=== PATIENT | female | born 1975 | race Caucasian/White ===

== ENCOUNTER → 2016-07-12 | Outpatient (CLI) | payer BC ==
[2016-07-12 15:50] LABS: Aty Lym Flag Moderate; CH 28.5; CHCM 33.2; HDW 2.37; HGB 12.7 gm/dL (11.4-16.0); MCHC 32.5 g/dL (31.0-37.0); MCV 86.2 fL (80.0-100.0); Mean Platelet Volume 6.7; RBC 4.52 m/uL (3.80-5.40); RDW 13.8 % (11.5-15.5)
[2016-07-12 15:54] LABS: ALT 23 U/L (9-52); AST 16 U/L (14-36); Alkaline Phosphatase 69 U/L (38-126); Anion Gap 11 mmol/L; Blood Urea Nitrogen 10 mg/dL (7-17); Calcium 9.7 mg/dL (8.4-10.2); Carbon Dioxide 26 mmol/L (22-30); Chloride 103 mmol/L (98-107); Glucose 85 mg/dL (74-99); LDH 302 U/L (313-618); Non-African American GFR(MDRD) >60 (>60 ml/min/1.73 sqM); Potassium 4.3 mmol/L (3.5-5.1); Sodium 140 mmol/L (137-145); Total Bilirubin 0.5 mg/dL (0.2-1.3); Total Protein 7.1 g/dL (6.3-8.2)
[2016-07-12 15:58] LABS: WBC 48.1 k/uL (3.8-10.6)
[2016-07-12 16:28] LABS: Add Differential Manual Differential
[2016-07-12 16:29] LABS: Nucleated Red Blood Cells 0 /100 WBC (0-0); Polychromasia Present; Total Cells Counted 100
== END ==
LOC: LABWHC1 15:18
PROVIDERS: ATTEND Internal Medicine
DX: C91.10 Chronic lymphocytic leukemia of B-cell type not having achieved remission (principal)
CPT/HCPCS: 36415; 80053; 83615; 85025

== ENCOUNTER → 2017-03-08 | Outpatient (CLI) | payer BC ==
[2017-03-08 11:49] LABS: Appearance,Urine Clear (Clear); Bilirubin,Urine Negative (Negative); Glucose,Urine (UA) Negative (Negative); Ketones,Urine Negative (Negative); Leukocyte Esterase,Urine Negative (Negative); Nitrite,Urine Negative (Negative); Protein,Urine Negative (Negative); Specific Gravity,Urine 1.011 (1.001-1.035); UA Billing (MACRO vs. MICRO) CHEM; Urobilinogen,Urine <2.0 mg/dL (<2.0)
[2017-03-08 11:54] LABS: Aty Lym Flag Moderate; CH 27.3; CHCM 31.9; HCT 36.1 % (34.0-46.0); HDW 2.37; HGB 12.1 gm/dL (11.4-16.0); MCH 28.7 pg (25.0-35.0); MCHC 33.4 g/dL (31.0-37.0); Mean Platelet Volume 7.1; RDW 15.2 % (11.5-15.5)
[2017-03-08 12:00] LABS: WBC 77.5 k/uL (3.8-10.6)
[2017-03-08 12:16] LABS: Add Differential Manual Differential
[2017-03-08 12:20] LABS: Nucleated Red Blood Cells 0 /100 WBC (0-0); Total Cells Counted 200
[2017-03-08 13:57] LABS: Erythrocyte Sedimentation Rate 7 mm/hr (0-20)
[2017-03-08 16:00] LABS: Gliadin AB IgA, Deaminated NEGATIVE (NEGATIVE); Tis Transglutaminase IgA Unit <0.5 AI
[2017-03-08 16:01] LABS: Tis Transglutaminase IgG Unit <0.8 U/mL
[2017-03-08 16:02] LABS: Gliadin AB IgG, Deaminated NEGATIVE (NEGATIVE); Gliadin AB IgG, Unit <0.4 U/mL
[2017-03-20 14:28] LABS: Mis test requested (Blood) Anti-IgE Receptor Ab
== END ==
LOC: LABWHC1 10:32
PROVIDERS: ATTEND Allergy & Immunology
DX: L50.9 Urticaria, unspecified (principal); K21.9 Gastro-esophageal reflux disease without esophagitis
CPT/HCPCS: 36415; 81003; 82784; 83516; 84436; 84439; 84443; 85025; 85652; 86160; 86162; 86376; 86800; 88184; 88185

== ENCOUNTER → 2017-05-15 | Outpatient (CLI) | payer BC ==
[2017-05-15 08:40] LABS: Anisocytosis Slight; HCT 33.5 % (34.0-46.0); HGB 10.9 gm/dL (11.4-16.0); MCH 29.2 pg (25.0-35.0); MCHC 32.7 g/dL (31.0-37.0); MCV 89.5 fL (80.0-100.0); Mean Platelet Volume 6.5; Platelet Count 364 k/uL (150-450); RBC 3.75 m/uL (3.80-5.40); RDW 17.4 % (11.5-15.5)
[2017-05-15 08:57] LABS: ALT 29 U/L (9-52); AST 16 U/L (14-36); Albumin 4.1 g/dL (3.5-5.0); Alkaline Phosphatase 65 U/L (38-126); Anion Gap 11 mmol/L; Blood Urea Nitrogen 9 mg/dL (7-17); Calcium 9.5 mg/dL (8.4-10.2); Carbon Dioxide 26 mmol/L (22-30); Chloride 106 mmol/L (98-107); Cholesterol 203 mg/dL (<200); Glucose 98 mg/dL (74-99); HDL Cholesterol 42 mg/dL (40-60); LDL Cholesterol,Calculated 135 mg/dL (0-99); Potassium 4.7 mmol/L (3.5-5.1); Sodium 143 mmol/L (137-145); Total Bilirubin 0.3 mg/dL (0.2-1.3); Total Protein 6.4 g/dL (6.3-8.2); Triglycerides 131 mg/dL (<150)
[2017-05-15 10:29] LABS: Lymphocytes # (M) 107.48 k/uL (1.0-4.8); Monocytes # (M) 1.11 k/uL (0-1.0); Neutrophils # (M) 3.32 k/uL (1.3-7.7); Neutrophils % (M) 3 %; Nucleated Red Blood Cells 0 /100 WBC (0-0); Total Cells Counted 200
[2017-05-15 10:30] LABS: Poikilocytosis (M) Present
[2017-05-15 11:41] LABS: WBC 110.8 k/uL (3.8-10.6)
== END | disposition home or self-care (01) ==
LOC: LABWHC1 07:57
PROVIDERS: ATTEND Family Medicine
DX: Z00.00 Encounter for general adult medical examination without abnormal findings (principal); E03.9 Hypothyroidism, unspecified; F32.9 Major depressive disorder, single episode, unspecified; C91.90 Lymphoid leukemia, unspecified not having achieved remission
CPT/HCPCS: 36415; 80053; 80061; 84443; 85025

== ENCOUNTER → 2017-05-29 | Outpatient (CLI) | payer BC ==
[2017-05-29 09:15] LABS: Anisocytosis Slight; HCT 33.5 % (34.0-46.0); HGB 10.8 gm/dL (11.4-16.0); MCH 29.2 pg (25.0-35.0); MCHC 32.3 g/dL (31.0-37.0); MCV 90.5 fL (80.0-100.0); Mean Platelet Volume 6.5; Platelet Count 328 k/uL (150-450)
[2017-05-29 09:29] LABS: WBC 109.4 k/uL (3.8-10.6)
[2017-05-29 10:37] LABS: Lymphocytes # (M) 103.93 k/uL (1.0-4.8); Monocytes # (M) 1.09 k/uL (0-1.0); Neutrophils # (M) 5.47 k/uL (1.3-7.7); Neutrophils % (M) 5 %; Nucleated Red Blood Cells 0 /100 WBC (0-0); Total Cells Counted 200
[2017-05-29 10:38] LABS: Poikilocytosis (M) Present
== END | disposition home or self-care (01) ==
LOC: LABWHC1 08:20
PROVIDERS: ATTEND Internal Medicine
DX: C91.10 Chronic lymphocytic leukemia of B-cell type not having achieved remission (principal)
CPT/HCPCS: 36415; 85025

== ENCOUNTER → 2018-05-10 | Outpatient (CLI) | payer BC ==
--- NOTE | 2018-05-13 13:27 | MM ---
Reason for exam: screening (asymptomatic). Last mammogram was performed 1 year and 3 months ago. History: Patient has history of other cancer at age 38. taking oral chemo now. Took hormonal contraceptives for 15 years. MG 3D Screening Mammo W/Cad Bilateral CC and MLO view(s) were taken. Prior study comparison: January 23, 2017, left breast MG 3d diag mammo w/cad LT. March 16, 2016, left breast MG work up mamm w CAD LT. The breast tissue is heterogeneously dense. This may lower the sensitivity of mammography. No suspicious abnormality. No significant changes when compared with prior studies. ASSESSMENT: Negative, BI-RAD 1 RECOMMENDATION: Routine screening mammogram of both breasts in 1 year.
== END | disposition home or self-care (01) ==
LOC: RADMAMWWP 14:42
PROVIDERS: ATTEND Obstetrics & Gynecology
DX: Z12.31 Encounter for screening mammogram for malignant neoplasm of breast (principal)
CPT/HCPCS: 77063; 77067

== ENCOUNTER → 2018-05-21 | Outpatient (CLI) | payer BC ==
[2018-05-21 09:59] LABS: Anisocytosis Slight; HCT 33.9 % (34.0-46.0); HGB 11.3 gm/dL (11.4-16.0); Hypochromasia Slight; MCH 24.8 pg (25.0-35.0); MCHC 33.4 g/dL (31.0-37.0); MCV 74.3 fL (80.0-100.0); Mean Platelet Volume 6.9; Microcytosis Slight; Platelet Count 323 k/uL (150-450); RBC 4.56 m/uL (3.80-5.40); RDW 16.1 % (11.5-15.5)
[2018-05-21 10:28] LABS: WBC 303.8 k/uL (3.8-10.6)
[2018-05-21 12:01] LABS: Lymphocytes # (M) 294.69 k/uL (1.0-4.8); Neutrophils # (M) 12.15 k/uL (1.3-7.7); Neutrophils % (M) 4 %; Nucleated Red Blood Cells 0 /100 WBC (0-0); Total Cells Counted 200
[2018-05-21 12:03] LABS: Poikilocytosis (M) Present
[2018-05-21 17:19] LABS: Albumin 4.6 g/dL (3.80-4.90); Albumin/Globulin Ratio 2.88 (1.20-2.10); Anion Gap 10.1 mmol/L (4.00-12.00); Calcium 9.2 mg/dL (8.7-10.3); Carbon Dioxide 23.9 mmol/L (21.6-31.8); Globulin 1.6 g/dL (1.6-3.3); LDL Cholesterol,Calculated 118.4 mg/dL (0.0-131.0); Potassium 3.9 mmol/L (3.5-5.5); Total Bilirubin 0.4 mg/dL (0.3-1.2); Total Protein 6.2 g/dL (6.2-8.2); VLDL Calculation 21.6 mg/dL (5.00-40.00)
== END | disposition home or self-care (01) ==
LOC: LABWHC1 08:42
PROVIDERS: ATTEND Family Medicine
DX: Z00.00 Encounter for general adult medical examination without abnormal findings (principal); R68.2 Dry mouth, unspecified
CPT/HCPCS: 36415; 80053; 80061; 84443; 84590; 85025

== ENCOUNTER 2018-07-19 06:35 | Emergency (ER) | payer BC ==
[2018-07-19] MEDS ORDERED: LORazepam 2 MG/ML INJ IV STA (07:41)
[2018-07-19] MEDS ORDERED: SODIUM CHLORIDE 0.9% 1,000 ML IV STA (07:41)
[2018-07-19] MEDS ORDERED: Acetaminophen-Codeine 300-30mg TAB PO STA (08:02)
--- NOTE | 2018-07-19 08:02 | ED ---
General Adult HPI - General Chief complaint: Dental/Oral Stated complaint: dental issue/anxiety Time Seen by Provider: 07/19/18 07:03 Source: patient, RN notes reviewed Mode of arrival: ambulatory Limitations: no limitations - History of Present Illness Initial comments: 42-year-old female with a past medical history of CLL, TBI presents to the emergency department for multiple complaints. Patient is very anxious upon arrival. Patient states that about 2 weeks ago she had a filling placed in the left upper molar. She states that about one week ago this filling fell out. She then was referred to an oral surgeon who extracted the tooth 2 days ago. Patient states she has had pain in the area since that time. She also was diagnosed with TMJ dysfunction. He states that last night the clots from the extraction fell out and she called her oral surgeon who told her to apply gauze. Patient states the bleeding did stop. Patient denies any active bleeding at this time. Patient states this ordeal with her tooth is causing her severe anxiety. She states she has had 2 mg of Xanax over the past 4 days which is abnormal for her. She states she is concerned she is dehydrated as she has had much to eat or drink over the past week. However she has been drinking protein shakes and other liquids. Patient admits she is mostly here for anxiety. She denies any suicidal or homicidal thoughts. Patient has no other complaints at this time including shortness of breath, chest pain, abdominal pain, nausea or vomiting, headache, or visual changes. - Related Data Home Medications Medication Instructions Recorded Confirmed Levothyroxine Sodium [Synthroid] 75 mcg PO DAILY 04/23/15 07/19/18 ALPRAZolam [Xanax] 0.5 mg PO BID PRN 07/19/18 07/19/18 Acetaminophen Tab [Tylenol Tab] 650 mg PO Q4H PRN 07/19/18 07/19/18 Allopurinol [Zyloprim] 300 mg PO DAILY 07/19/18 07/19/18 Biotin 5 mg PO DAILY 07/19/18 07/19/18 Elderberry 1 tab PO DAILY 07/19/18 07/19/18 Ferrous Sulfate [Feosol] 325 mg PO DAILY 07/19/18 07/19/18 Ibrutinib [Imbruvica] 420 mg PO ONCE PRN 07/19/18 07/19/18 L.acidoph,Paracasei, B.lactis 1 cap PO DAILY 07/19/18 07/19/18 [Probiotic] Multivitamin [Multivitamins Adult 1 tab PO DAILY 07/19/18 07/19/18 Gummies] Naproxen Sodium [Aleve] 440 mg PO DAILY PRN 07/19/18 07/19/18 Omeprazole 40 mg PO DAILY 07/19/18 07/19/18 Penicillin V Potassium [Pen Vee K] 500 mg PO QID 07/19/18 07/19/18 lamoTRIgine [LaMICtal] 75 mg PO DAILY 07/19/18 07/19/18 methylPREDNISolone Dose Pack See Taper PO DAILY 07/19/18 07/19/18 [Medrol Dose Pack] Allergies Allergy/AdvReac Type Severity Reaction Status Date / Time nifedipine [From Procardia] Allergy Swelling Verified 07/19/18 07:45 ibuprofen AdvReac Diarrhea Verified 07/19/18 07:45 Iodinated Contrast- Oral and AdvReac Rash/Hives Verified 07/19/18 07:45 IV Dye [Iodinated Contrast Media - IV Dye] Review of Systems ROS Statement: Those systems with pertinent positive or pertinent negative responses have been documented in the HPI. ROS Other: All systems not noted in ROS Statement are negative. Past Medical History Past Medical History: Cancer Additional Past Medical History / Comment(s): CLL 2012, TDI, closed head injury, History of Any Multi-Drug Resistant Organisms: None Reported Past Surgical History: Cholecystectomy, Orthopedic Surgery Additional Past Surgical History / Comment(s): right knee scope, ectopic ,laproscopic abdominal surgery for ectopic Past Anesthesia/Blood Transfusion Reactions: No Reported Reaction Past Psychological History: Anxiety, Depression Smoking Status: Never smoker Past Alcohol Use History: Rare Past Drug Use History: None Reported - Past Family History Sister(s) Family Medical History: Cancer, Deep Vein Thrombosis (DVT) Additional Family Medical History / Comment(s): CHONDROCYCOMA Brother(s) Family Medical History: Cancer Additional Family Medical History / Comment(s): DERMOPLASTIC SMALL CELL TUMOR General Exam Limitations: no limitations General appearance: anxious (anxious, tearful) Head exam: Present: atraumatic, normocephalic, normal inspection Eye exam: Present: normal appearance, PERRL, EOMI. Absent: scleral icterus, conjunctival injection, periorbital swelling ENT exam: Present: mucous membranes moist (mucous membranes moist). Absent: normal oropharynx (patient has tooth extraction noted to L upper molar, clot present, no active bleeding. minimal edema noted to L side face) Neck exam: Present: normal inspection, full ROM. Absent: tenderness, meningismus, lymphadenopathy Respiratory exam: Present: normal lung sounds bilaterally. Absent: respiratory distress, wheezes, rales, rhonchi, stridor Cardiovascular Exam: Present: regular rate, normal rhythm, normal heart sounds. Absent: systolic murmur, diastolic murmur, rubs, gallop, clicks Neurological exam: Present: alert, oriented X3, CN II-XII intact Psychiatric exam: Present: anxious. Absent: homicidal ideation, suicidal ideation Course Vital Signs 07/19/18 07/19/18 06:38 08:42 Temperature 97.9 F Pulse Rate 100 Respiratory 22 18 Rate Blood Pressure 137/86 O2 Sat by Pulse 100 98 Oximetry - Reevaluation(s) Reevaluation #1: 07/19/18 09:08 called lab at 0905 to discuss pending lab results, still waiting on diff Medical Decision Making - Medical Decision Making 42-year-old male presents to the emergency department chiefly for a mean complaint of anxiety from dental extraction. Patient states she had some bleed ing last night that has resolved. Patient states she has been very anxious over the past several days as she has been having trouble with her tooth. She states she gets anxiety from health problems frequently. Her Xanax is not helping. Patient is concerned she is dehydrated as she has not been drinking much. I did discuss that her mucous members are moist and she is drinking at home she likely does not need an IV. However patient is requesting IV fluids. She was given a liter of saline. Lab work was drawn which showed a white count of 169 which is actually improved for her due to her history of CLL. MCV 73, patient was supposed to start iron supplements but has not done so yet. She will start these today. CMP unremarkable. Current monoxide somewhat low at 19 however this is likely due to hyperventilation as patient was very anxious upon presentation. Patient was given antianxiety medicines as well. She is stating she is much improved. She states she is going to call the oral surgeon when she leaves here so that he can look at the tooth as well. I do think this will help with her anxiety. I discussed following up with primary care in the next 1-2 days to discuss this as well. Patient will return here if she has any worsening symptoms. All questions answered. Patient is feeling ready to go home. - Lab Data Result diagrams: 07/19/18 07:56 07/19/18 07:56 Lab Results 07/19/18 07/19/18 Range/Units 07:56 07:56 WBC 169.2 H* (3.8-10.6) k/uL RBC 4.87 (3.80-5.40) m/uL Hgb 11.7 (11.4-16.0) gm/dL Hct 35.6 (34.0-46.0) % MCV 73.2 L (80.0-100.0) fL MCH 24.1 L (25.0-35.0) pg MCHC 32.9 (31.0-37.0) g/dL RDW 17.0 H (11.5-15.5) % Plt Count 414 (150-450) k/uL Neutrophils % (Manual) 5 % Lymphocytes % (Manual) 96 % Neutrophils # (Manual) 8.46 H (1.3-7.7) k/uL Lymphocytes # (Manual) 162.43 H (1.0-4.8) k/uL Nucleated RBCs 0 (0-0) /100 WBC Manual Slide Review Performed Anisocytosis Slight Microcytosis Moderate Sodium 142 (137-145) mmol/L Potassium 3.8 (3.5-5.1) mmol/L Chloride 112 H (98-107) mmol/L Carbon Dioxide 19 L (22-30) mmol/L Anion Gap 11 mmol/L BUN 6 L (7-17) mg/dL Creatinine 0.59 (0.52-1.04) mg/dL Est GFR (CKD-EPI)AfAm >90 (>60 ml/min/1.73 sqM) Est GFR (CKD-EPI)NonAf >90 (>60 ml/min/1.73 sqM) Glucose 84 (74-99) mg/dL Calcium 9.9 (8.4-10.2) mg/dL Total Bilirubin 0.6 (0.2-1.3) mg/dL AST 20 (14-36) U/L ALT 30 (9-52) U/L Alkaline Phosphatase 76 (38-126) U/L Total Protein 7.0 (6.3-8.2) g/dL Albumin 4.5 (3.5-5.0) g/dL Disposition Clinical Impression: History of tooth extraction, Anxiety about health Disposition: HOME SELF-CARE Condition: Good Instructions (If sedation given, give patient instructions): Anxiety (ED), Tooth Extraction (DC) Additional Instructions: Please follow-up with oral surgeon and primary care in 1-2 days. Please return here for any worsening symptoms. Is patient prescribed a controlled substance at d/c from ED?: No Referrals: Inna Barclay MD [Primary Care Provider] - 1-2 days Time of Disposition: 09:49
[2018-07-19 08:21] LABS: Anisocytosis Slight; HCT 35.6 % (34.0-46.0); HGB 11.7 gm/dL (11.4-16.0); MCH 24.1 pg (25.0-35.0); MCHC 32.9 g/dL (31.0-37.0); MCV 73.2 fL (80.0-100.0); Mean Platelet Volume 7.7; Microcytosis Moderate; Platelet Count 414 k/uL (150-450); RBC 4.87 m/uL (3.80-5.40)
[2018-07-19 08:38] LABS: ALT 30 U/L (9-52); AST 20 U/L (14-36); Albumin 4.5 g/dL (3.5-5.0); Alkaline Phosphatase 76 U/L (38-126); Anion Gap 11 mmol/L; Blood Urea Nitrogen 6 mg/dL (7-17); Calcium 9.9 mg/dL (8.4-10.2); Carbon Dioxide 19 mmol/L (22-30); Chloride 112 mmol/L (98-107); Glucose 84 mg/dL (74-99); Potassium 3.8 mmol/L (3.5-5.1); Sodium 142 mmol/L (137-145); Total Bilirubin 0.6 mg/dL (0.2-1.3)
[2018-07-19 08:43] VITALS: RESP 18
[2018-07-19 09:19] LABS: Lymphocytes # (M) 162.43 k/uL (1.0-4.8); Neutrophils # (M) 8.46 k/uL (1.3-7.7); Neutrophils % (M) 5 %; Nucleated Red Blood Cells 0 /100 WBC (0-0); Total Cells Counted 200
[2018-07-19 09:21] LABS: WBC 169.2 k/uL (3.8-10.6)
[2018-07-19 10:09] VITALS: BP 110/58; PULSE 89; TEMP 97
== END 2018-07-19 10:09 | disposition home or self-care (01) ==
LOC: EC 06:35
DX: F41.9 Anxiety disorder, unspecified (principal); Z98.818 Other dental procedure status; Z85.6 Personal history of leukemia; F32.9 Major depressive disorder, single episode, unspecified; Z79.890 Hormone replacement therapy; Z79.899 Other long term (current) drug therapy; Z88.6 Allergy status to analgesic agent; Z88.8 Allergy status to other drugs, medicaments and biological substances; Z91.041 Radiographic dye allergy status
CPT/HCPCS: 36415; 80053; 85025; 99283; 96374; 96361; J2060

== ENCOUNTER → 2018-08-15 | Outpatient (CLI) | payer BC ==
[2018-08-15 07:52] LABS: Anisocytosis Slight; HGB 10.7 gm/dL (11.4-16.0); Hypochromasia Moderate; MCH 24.1 pg (25.0-35.0); MCHC 30.6 g/dL (31.0-37.0); Microcytosis Slight; Platelet Count 406 k/uL (150-450); RBC 4.45 m/uL (3.80-5.40); RDW 17.4 % (11.5-15.5)
[2018-08-15 08:00] LABS: MCV 78.8 fL (80.0-100.0)
[2018-08-15 09:02] LABS: Lymphocytes # (M) 129.13 k/uL (1.0-4.8); Neutrophils # (M) 12.77 k/uL (1.3-7.7); Neutrophils % (M) 9 %; Nucleated Red Blood Cells 0 /100 WBC (0-0); Total Cells Counted 200
[2018-08-15 09:03] LABS: Poikilocytosis (M) Present
[2018-08-15 09:50] LABS: WBC 141.9 k/uL (3.8-10.6)
== END ==
LOC: LABPAT 07:09
PROVIDERS: ATTEND Obstetrics & Gynecology
DX: Z01.812 Encounter for preprocedural laboratory examination (principal); D64.9 Anemia, unspecified; N92.0 Excessive and frequent menstruation with regular cycle
CPT/HCPCS: 36415; 85025

== ENCOUNTER 2018-08-20 08:18 | Day surgery (SDC) | payer BC ==
[2018-08-15 10:29] VITALS: BMI 25.9
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
[~2018-08-20 08:18] MED LIST: DEXAMETHASONE SOD PHOSPHATE 10 MG/ML 1 ML VIAL IV ONE; LACTATED RINGERS 1,000 ML IV SCH; LIDOCAINE 1% 20 ML VIAL (10MG/ML) FOR IV START INTRADERMA PRN; MIDAZOLAM 2 MG/2 ML VIAL IV PRN; Pre Op ABX Message 1 EACH MISC MISCELLANE ONE; fentaNYL (PF) 50 MCG/ML 2 ML AMP IV PRN
[2018-08-20] MEDS ORDERED: PROPOFOL 10 MG/ML 20 ML VIAL IV ONE (09:34)
[2018-08-20] MEDS ORDERED: MIDAZOLAM 2 MG/2 ML VIAL ONE (09:34)
[2018-08-20] MEDS ORDERED: LIDOCAINE 1% INJ 10MG/ML (20 ML MDV) ONE (09:34)
[2018-08-20] MEDS ORDERED: SUCCINYLCHOLINE CHLORIDE 100 MG/5 ML SYR IV ONE (09:34)
[2018-08-20] MEDS ORDERED: KETOROLAC 30 MG/ML 1 ML VIAL ONE (09:34)
--- NOTE | 2018-08-20 10:05 | P.OP ---
Date of Procedure: 08/20/18 Preoperative Diagnosis: Menorrhagia with subsequent anemia Postoperative Diagnosis: Same Procedure(s) Performed: Hysteroscopy, NovaSure endometrial ablation Anesthesia: KEYAA Surgeon: Gisela Pham [employer] Motor Engineer #1: Stated None Estimated Blood Loss (ml): 5 IV fluids (ml): 500 Urine output (ml): 200 Pathology: none sent Condition: stable Disposition: PACU Operative Findings: Essentially normal-appearing uterine cavity Description of Procedure: Patient is brought to the operating suite where a general anesthetic is administered without difficulty. She's placed in the dorsal lithotomy position. The appropriate timeout is performed to assure proper patient and procedural identification. Urine hCG is negative. Examination under anesthesia reveals a small mobile smooth uterus, negative adnexa bilaterally. The cervix, vagina, perineal bodies are all prepped and draped in usual sterile fashion. Bladder is drained for approximately 200 mL of clear yellow urine. Weighted spe culum was placed into the vagina. Anterior lip of the cervix is grasped with a double-tooth tenaculum. Uterus sounds to a depth of 8.5 cm in the anteverted position, cervix is 3 cm in length. The cervix was gently and systematically dilated using Hanks dilators. The hysteroscope was placed and the cavity is distended with sterile saline. Inspection of the cavity reveals normal appearing ostia bilaterally, no septa, fibroids, polyps or defects. Hysteroscope was removed. NovaSure wand is placed and seated properly. A with of 2.5 cm, length of 5.5 cm is calibrated. The machine is properly calibrated and enabled. For 57 seconds and a power of 76 W the procedure is carried out. When it is completed the wand is removed. Hysteroscope was once again placed and the cavity is noted to be uniformly blanched. All sponge needle and enhancement counts are correct at the end of the procedure. Toradol is given prior to leaving the operative suite. Patient is brought back to the operating room with stable vital signs including 98% O2 saturation, pulse 88, blood pressure 150/80. Patient will follow-up with me in the office in 2 weeks.
[2018-08-20 10:19] VITALS: TEMP 97.6
[2018-08-20 11:06] VITALS: RESP 18
[2018-08-20 11:44] VITALS: BP 146/74; PULSE 66
== END 2018-08-20 12:10 | disposition home or self-care (01) ==
LOC: OR 08:18
PROVIDERS: ATTEND Obstetrics & Gynecology
DX: N92.0 Excessive and frequent menstruation with regular cycle (principal); D64.9 Anemia, unspecified; F39 Unspecified mood [affective] disorder; E07.9 Disorder of thyroid, unspecified; K21.9 Gastro-esophageal reflux disease without esophagitis; E28.2 Polycystic ovarian syndrome; Z88.6 Allergy status to analgesic agent; Z91.041 Radiographic dye allergy status; Z98.51 Tubal ligation status; Z85.6 Personal history of leukemia; Z87.820 Personal history of traumatic brain injury; Z88.8 Allergy status to other drugs, medicaments and biological substances; Z79.52 Long term (current) use of systemic steroids; Z79.899 Other long term (current) drug therapy; Z79.890 Hormone replacement therapy
CPT/HCPCS: 81025; 58563; J2250; J1100; J2001; J1885; J0330; J2704

== ENCOUNTER 2018-12-27 13:22 | Emergency (ER) | payer BC ==
[2018-12-27 13:50] VITALS: TEMP 98.1
[2018-12-27] MEDS ORDERED: ONDANSETRON 4 MG/2 ML VIAL IVP STA (14:16)
[2018-12-27] MEDS ORDERED: HYDROmorphone 0.5 MG/0.5 ML SYRINGE IVP STA (14:16)
[2018-12-27] MEDS ORDERED: SODIUM CHLORIDE 0.9% 1,000 ML IV STA (14:16)
[2018-12-27] MEDS ORDERED: FAMOTIDINE 20 MG/2 ML VIAL IV STA (14:17)
[2018-12-27] MEDS ORDERED: methylPREDNISolone SOD SUCCI 125 MG/2 ML VIAL IV STA (14:17)
[2018-12-27] MEDS ORDERED: LORazepam 2 MG/ML INJ IV STA (14:17)
[2018-12-27] MEDS ORDERED: diphenhydrAMINE 50 MG/ML 1 ML VIAL IVP STA (14:17)
--- NOTE | 2018-12-27 14:49 | ED ---
Abdominal Pain HPI - General Chief Complaint: Abdominal Pain Stated Complaint: R side pain, NVD Time Seen by Provider: 12/27/18 14:05 Source: patient Mode of arrival: ambulatory Limitations: no limitations - History of Present Illness Initial Comments: 43-year-old female patient with past medical history significant for chronic lymphocytic leukemia, closed head injury, anxiety presents to the emergency department today for evaluation of right lower quadrant abdominal pain, nausea, and increased anxiety. Patient states that she started having some nausea yesterday. States that today she developed right lower quadrant abdominal pain. Patient states the pain worsens with movement. States it is very tender to the touch. Patient states she's had increased anxiety over the last week. States she did see her primary care physician yesterday and was started on an increased dose of her Lamictal and Paxil. She denies any fevers but states she has been chilled. She reports nausea but no vomiting. States she is able to eat and drink today. States that she has had 3 episodes of diarrhea today. Denies hematochezia or melena. She has had cholecystectomy and several gynecologic surgeries. Patient denies any recent rash, shortness breath, chest pain, back pain, numbness, tingling, dizziness, weakness, hematuria, dysuria, urinary urgency, urinary frequency, headache, visual changes, or any other complaints. - Related Data Home Medications Medication Instructions Recorded Confirmed Levothyroxine Sodium [Synthroid] 75 mcg PO QAM 04/23/15 08/15/18 Allopurinol [Zyloprim] 300 mg PO AC-SUPPER 07/19/18 08/20/18 Biotin 5 mg PO AC-SUPPER 07/19/18 08/15/18 Elderberry 1 tab PO AC-SUPPER 07/19/18 08/15/18 Ibrutinib [Imbruvica] 420 mg PO HS 07/19/18 08/15/18 L.acidoph,Paracasei, B.lactis 1 cap PO AC-SUPPER 07/19/18 08/15/18 [Probiotic] Multivitamin [Multivitamins Adult 1 tab PO AC-SUPPER 07/19/18 08/15/18 Gummies] Omeprazole 40 mg PO AC-SUPPER 07/19/18 08/20/18 lamoTRIgine [LaMICtal] 75 mg PO HS 07/19/18 08/15/18 methylPREDNISolone Dose Pack 20 mg PO HS 07/19/18 08/15/18 [Medrol Dose Pack] busPIRone HCl [Buspar] 10 mg PO BID 08/15/18 08/20/18 Allergies Allergy/AdvReac Type Severity Reaction Status Date / Time nifedipine [From Procardia] Allergy Swelling Verified 12/27/18 13:49 ibuprofen AdvReac Diarrhea Verified 12/27/18 13:49 Iodinated Contrast- Oral and AdvReac Rash/Hives Verified 12/27/18 13:49 IV Dye [Iodinated Contrast Media - IV Dye] Review of Systems ROS Statement: Those systems with pertinent positive or pertinent negative responses have been documented in the HPI. ROS Other: All systems not noted in ROS Statement are negative. Past Medical History Past Medical History: Cancer Additional Past Medical History / Comment(s): CLL 2012, TDI, closed head injury, Leukemia History of Any Multi-Drug Resistant Organisms: None Reported Past Surgical History: Cholecystectomy, Orthopedic Surgery Additional Past Surgical History / Comment(s): right knee scope, ectopic ,laproscopic abdominal surgery for ectopic Past Anesthesia/Blood Transfusion Reactions: No Reported Reaction Past Psychological History: Anxiety, Depression Smoking Status: Never smoker Past Alcohol Use History: None Reported Past Drug Use History: None Reported - Past Family History Sister(s) Family Medical History: Cancer, Deep Vein Thrombosis (DVT) Additional Family Medical History / Comment(s): CHONDROCYCOMA Brother(s) Family Medical History: Cancer Additional Family Medical History / Comment(s): DERMOPLASTIC SMALL CELL TUMOR General Exam Limitations: no limitations General appearance: alert, in no apparent distress, other (This is a well- developed, well-nourished adult female patient in no acute distress. Vital signs upon presentation are temperature 98.1F, pulse 110, respirations 20, blood pressure 121/80, pulse ox 98% on room air.) Eye exam: Present: normal appearance, PERRL, EOMI. Absent: scleral icterus, conjunctival injection, periorbital swelling ENT exam: Present: normal exam, normal oropharynx, mucous membranes moist Respiratory exam: Present: normal lung sounds bilaterally. Absent: respiratory distress, wheezes, rales, rhonchi, stridor Cardiovascular Exam: Present: regular rate, normal rhythm, normal heart sounds. Absent: systolic murmur, diastolic murmur, rubs, gallop, clicks GI/Abdominal exam: Present: soft, tenderness (Right lower quadrant tenderness, suprapubic tenderness), normal bowel sounds. Absent: distended, guarding, rebound, rigid Neurological exam: Present: alert, oriented X3, CN II-XII intact Psychiatric exam: Present: normal affect, normal mood Skin exam: Present: warm, dry, intact, normal color. Absent: rash Course Vital Signs 12/27/18 12/27/18 13:46 16:57 Temperature 98.1 F Pulse Rate 110 H 95 Respiratory 20 18 Rate Blood Pressure 121/80 127/73 O2 Sat by Pulse 98 96 Oximetry Medical Decision Making - Medical Decision Making 43-year-old female patient presents the emergency department today for evaluation of right lower quadrant abdominal pain, diarrhea, and anxiety. Physical examination reveals right lower quadrant suprapubic abdominal tenderness. There is no guarding. Labs reviewed and did reveal elevated white blood cell count at 70.6, this is chronic for the patient as she does have CLL. Remainder of labs are unremarkable. CT abdomen and pelvis was obtained to rule out appendicitis, there is no evidence for appendicitis and no other intra- abdominal abdomen mild to soak off the patient's symptoms. Patient does currently have diarrhea, we did discuss a possible viral enteritis as a cause for her symptoms. She'll be discharged home to follow-up with her primary care physician for recheck in 1-2 days. Return parameters were discussed in detail. She verbalizes understanding and agrees with this plan. - Lab Data Result diagrams: 12/27/18 15:00 12/27/18 15:00 Lab Results 12/27/18 12/27/18 12/27/18 Range/Units 15:00 15:00 15:00 WBC 70.6 H* (3.8-10.6) k/uL RBC 5.22 (3.80-5.40) m/uL Hgb 14.1 (11.4-16.0) gm/dL Hct 41.7 (34.0-46.0) % MCV 79.8 L (80.0-100.0) fL MCH 27.0 (25.0-35.0) pg MCHC 33.9 (31.0-37.0) g/dL RDW 17.0 H (11.5-15.5) % Plt Count 278 (150-450) k/uL Neutrophils % (Manual) 15 % Lymphocytes % (Manual) 84 % Monocytes % (Manual) 2 % Neutrophils # (Manual) 10.59 H (1.3-7.7) k/uL Lymphocytes # (Manual) 59.30 H (1.0-4.8) k/uL Monocytes # (Manual) 1.41 H (0-1.0) k/uL Nucleated RBCs 0 (0-0) /100 WBC Manual Slide Review Performed Anisocytosis Slight Microcytosis Slight Sodium 140 (137-145) mmol/L Potassium 3.6 (3.5-5.1) mmol/L Chloride 109 H (98-107) mmol/L Carbon Dioxide 16 L (22-30) mmol/L Anion Gap 15 mmol/L BUN 10 (7-17) mg/dL Creatinine 0.73 (0.52-1.04) mg/dL Est GFR (CKD-EPI)AfAm >90 (>60 ml/min/1.73 sqM) Est GFR (CKD-EPI)NonAf >90 (>60 ml/min/1.73 sqM) Glucose 75 (74-99) mg/dL Calcium 9.5 (8.4-10.2) mg/dL Total Bilirubin 0.9 (0.2-1.3) mg/dL AST 19 (14-36) U/L ALT 16 (9-52) U/L Alkaline Phosphatase 66 (38-126) U/L Total Protein 7.1 (6.3-8.2) g/dL Albumin 4.5 (3.5-5.0) g/dL Amylase 49 (30-110) U/L Lipase 75 (23-300) U/L Urine Color Light Yellow Urine Appearance Clear (Clear) Urine pH 5.5 (5.0-8.0) Ur Specific [place] 1.006 (1.001-1.035) Urine Protein Negative (Negative) Urine Glucose (UA) Negative (Negative) Urine Ketones 2+ H (Negative) Urine Blood Small H (Negative) Urine Nitrite Negative (Negative) Urine Bilirubin Negative (Negative) Urine Urobilinogen <2.0 (<2.0) mg/dL Ur Leukocyte Esterase Negative (Negative) Urine RBC 4 (0-5) /hpf Ur Squamous Epith Cells 4 (0-4) /hpf Urine Mucus Rare H (None) /hpf - Radiology Data Radiology results: report reviewed, image reviewed CT abdomen and pelvis is obtained. Report is reviewed in its entirety. Impression by Dr. Christianson shows no significant acute finding is seen to account for patient's clinical symptoms. Disposition Clinical Impression: Abdominal pain, Acute diarrhea Disposition: HOME SELF-CARE Condition: Good Instructions (If sedation given, give patient instructions): Acute Diarrhea (ED), Abdominal Pain (ED) Additional Instructions: Increase fluids. Follow up with the primary care physician for recheck in 1-2 days. Return to the emergency department immediately for any new, worsening, or concerning symptoms. Is patient prescribed a controlled substance at d/c from ED?: No Referrals: Inna Barclay MD [Primary Care Provider] - 1-2 days Time of Disposition: 17:05
[2018-12-27 15:54] LABS: Anisocytosis Slight; HCT 41.7 % (34.0-46.0); HGB 14.1 gm/dL (11.4-16.0); MCHC 33.9 g/dL (31.0-37.0); MCV 79.8 fL (80.0-100.0); Mean Platelet Volume 8.4; Microcytosis Slight; Platelet Count 278 k/uL (150-450); RBC 5.22 m/uL (3.80-5.40)
[2018-12-27 15:57] LABS: WBC 70.6 k/uL (3.8-10.6)
[2018-12-27 15:58] LABS: Appearance,Urine Clear (Clear); Bilirubin,Urine Negative (Negative); Blood,Urine Small (Negative); Color,Urine Light Yellow; Glucose,Urine (UA) Negative (Negative); Ketones,Urine 2+ (Negative); Leukocyte Esterase,Urine Negative (Negative); Mucus,Urine Rare /hpf; Nitrite,Urine Negative (Negative); PH, Urine 5.5 (5.0-8.0); Protein,Urine Negative (Negative); RBC,Urine 4 /hpf (0-5); Specific Gravity,Urine 1.006 (1.001-1.035); Squamous Epithelial Cell,Urine 4 /hpf (0-4); Urobilinogen,Urine <2.0 mg/dL (<2.0)
--- NOTE | 2018-12-27 15:58 | CT ---
EXAMINATION TYPE: CT abdomen pelvis w con DATE OF EXAM: 12/27/2018 HISTORY: Right lower quadrant pain. CT DLP: 649.8mGycm Automated Exposure Control for Dose Reduction was Utilized. CONTRAST: CT scan of the abdomen and pelvis is performed without oral but with IV Contrast, patient injected wi th 100 mL of Isovue 300. COMPARISON: CT abdomen and pelvis April 27, 2012 FINDINGS: LUNG BASES: There are scattered hypodense lesions throughout the liver, largest posterior aspect righ t hepatic lobe measures 2.0 cm long axis axial image 14 without significant enhancement favoring thin -walled cyst. It is slightly larger versus prior study. LIVER/GB: Cholecystectomy clips are now present. PANCREAS: No significant abnormality is seen. SPLEEN: No significant abnormality is seen. ADRENALS: No significant abnormality is seen. KIDNEYS: No significant abnormality is seen. BOWEL: Evaluation bowel slightly suboptimal secondary to lack of enteric contrast and patient having little intra-abdominal fat. No suspicious small or large bowel dilatation. Surgical clips are noted n ear cecum axial image 62 somewhat anterior in position.. The terminal ileum is felt within normal cordova its axial image 37. No inflammatory change at base of cecum low-lying into right pelvis UTERUS/ADNEXA: Slightly anteverted uterus. Tubal ligation clips along the periphery of the uterus. Junior th ovaries symmetric and not suspiciously enlarged axial image 64. There is rim hyperdense 1.5 cm lef t ovarian lesion image 65 likely reflecting corpus luteal cyst from recent ovulation. There is left p elvic phlebolith axial image 69. LYMPH NODES: No greater than 1cm abdominal or pelvic lymph nodes are appreciated. OSSEOUS STRUCTURES: Slight underlying levoconvex scoliosis is present. OTHER: No significant additional abnormality is seen. IMPRESSION: No significant acute finding is seen to account for patient's clinical symptoms.
[2018-12-27 16:01] LABS: ALT 16 U/L (9-52); AST 19 U/L (14-36); African American GFR (CKD) >90 (>60 ml/min/1.73 sqM); Albumin 4.5 g/dL (3.5-5.0); Alkaline Phosphatase 66 U/L (38-126); Amylase 49 U/L (30-110); Anion Gap 15 mmol/L; Blood Urea Nitrogen 10 mg/dL (7-17); Calcium 9.5 mg/dL (8.4-10.2); Carbon Dioxide 16 mmol/L (22-30); Chloride 109 mmol/L (98-107); Glucose 75 mg/dL (74-99); Potassium 3.6 mmol/L (3.5-5.1); Sodium 140 mmol/L (137-145); Total Bilirubin 0.9 mg/dL (0.2-1.3); Total Protein 7.1 g/dL (6.3-8.2)
[2018-12-27 16:45] LABS: Monocytes # (M) 1.41 k/uL (0-1.0); Neutrophils % (M) 15 %; Nucleated Red Blood Cells 0 /100 WBC (0-0); Total Cells Counted 200
[2018-12-27 16:58] VITALS: BP 127/73; PULSE 95; RESP 18
== END 2018-12-27 17:19 | disposition home or self-care (01) ==
LOC: EC 13:22
DX: R19.7 Diarrhea, unspecified (principal); C91.10 Chronic lymphocytic leukemia of B-cell type not having achieved remission; F41.9 Anxiety disorder, unspecified; F32.9 Major depressive disorder, single episode, unspecified; Z79.890 Hormone replacement therapy; Z79.899 Other long term (current) drug therapy; Z88.6 Allergy status to analgesic agent; Z91.041 Radiographic dye allergy status; Z88.8 Allergy status to other drugs, medicaments and biological substances; Z98.890 Other specified postprocedural states; Z90.49 Acquired absence of other specified parts of digestive tract
CPT/HCPCS: 36415; 80053; 82150; 83690; 85025; 81001; 87040; 74177; 96374; 96375 ×5; 96361 ×2; 99284; J2060; J1200; J2930; J2405; J1170; Q9967

== ENCOUNTER 2018-12-28 06:08 | Emergency (ER) | payer BC ==
[2018-12-28 06:17] VITALS: TEMP 97.8
[2018-12-28] MEDS ORDERED: SODIUM CHLORIDE 0.9% 500 ML 500 ML IV STA ×2 (06:21→06:43)
[2018-12-28 06:40] LABS: Appearance,Urine Clear (Clear); Bacteria,Urine Rare /hpf; Bilirubin,Urine Negative (Negative); Blood,Urine Moderate (Negative); Color,Urine Yellow; Glucose,Urine (UA) Negative (Negative); Ketones,Urine 2+ (Negative); Leukocyte Esterase,Urine Negative (Negative); Mucus,Urine Rare /hpf; Nitrite,Urine Negative (Negative); Protein,Urine Negative (Negative); RBC,Urine 7 /hpf (0-5); Specific Gravity,Urine 1.017 (1.001-1.035); Squamous Epithelial Cell,Urine 2 /hpf (0-4); WBC,Urine 1 /hpf (0-5)
[2018-12-28] MEDS ORDERED: HYDROmorphone 0.5 MG/0.5 ML SYRINGE IVP STA ×2 (06:45→07:54)
[2018-12-28] MEDS ORDERED: ONDANSETRON 4 MG/2 ML VIAL IVP STA (06:45)
--- NOTE | 2018-12-28 06:47 | ED ---
General Adult HPI - General Chief complaint: Abdominal Pain Stated complaint: Rt Abd/Back Pain Time Seen by Provider: 12/28/18 06:18 Source: patient, family, RN notes reviewed Mode of arrival: ambulatory Limitations: no limitations - History of Present Illness Initial comments: 43-year-old female with a past medical history of chronic lymphocytic leukemia, closed head injury, generalized anxiety presents to the emergency department for a chief complaint of right lower quadrant pain. Patient states this pain radiates to her back. States this has been ongoing for about 2 days. States she's been nauseous for a week and did have 3 bouts of watery diarrhea yesterday. Patient states that she was seen here yesterday and is to follow-up with her doctor. States that sitting up makes her pain worse. Denies any fevers or chills. Denies any dysuria. Denies any hematuria or hematochezia/melena. Denies vomiting. patient states the only reason she came back in was because she felt warmer on the right side than the left. Patient has no other complaints at this time including shortness of breath, chest pain, nausea or vomiting, headache, or visual changes. - Related Data Home Medications Medication Instructions Recorded Confirmed Levothyroxine Sodium [Synthroid] 75 mcg PO QAM 04/23/15 12/28/18 Biotin 5 mg PO AC-SUPPER 07/19/18 12/28/18 Elderberry 1 tab PO AC-SUPPER 07/19/18 12/28/18 Ibrutinib [Imbruvica] 420 mg PO HS 07/19/18 12/28/18 L.acidoph,Paracasei, B.lactis 1 cap PO AC-SUPPER 07/19/18 12/28/18 [Probiotic] Multivitamin [Multivitamins Adult 1 tab PO AC-SUPPER 07/19/18 12/28/18 Gummies] Ergocalciferol [Vitamin D2] 50,000 unit PO SA 12/28/18 12/28/18 PARoxetine HCL 20 mg PO DAILY 12/28/18 12/28/18 lamoTRIgine [LaMICtal] 50 mg PO BID 12/28/18 12/28/18 Allergies Allergy/AdvReac Type Severity Reaction Status Date / Time Iodinated Contrast- Oral and Allergy Rash/Hives Verified 12/28/18 06:57 IV Dye [Iodinated Contrast Media - IV Dye] nifedipine [From Procardia] Allergy Swelling Verified 12/28/18 06:57 ibuprofen AdvReac Diarrhea Verified 12/28/18 06:57 Review of Systems ROS Statement: Those systems with pertinent positive or pertinent negative responses have been documented in the HPI. ROS Other: All systems not noted in ROS Statement are negative. Past Medical History Past Medical History: Cancer Additional Past Medical History / Comment(s): CLL 2013, TDI, closed head injury, Leukemia History of Any Multi-Drug Resistant Organisms: None Reported Past Surgical History: Cholecystectomy, Orthopedic Surgery Additional Past Surgical History / Comment(s): right knee scope, ectopic ,laproscopic abdominal surgery for ectopic Past Anesthesia/Blood Transfusion Reactions: No Reported Reaction Past Psychological History: Anxiety, Depression Smoking Status: Never smoker Past Alcohol Use History: None Reported Past Drug Use History: None Reported - Past Family History Sister(s) Family Medical History: Cancer, Deep Vein Thrombosis (DVT) Additional Family Medical History / Comment(s): CHONDROCYCOMA Brother(s) Family Medical History: Cancer Additional Family Medical History / Comment(s): DERMOPLASTIC SMALL CELL TUMOR General Exam Limitations: no limitations General appearance: alert, in no apparent distress, anxious Head exam: Present: atraumatic, normocephalic, normal inspection Eye exam: Present: normal appearance, PERRL, EOMI. Absent: scleral icterus, conjunctival injection, periorbital swelling ENT exam: Present: normal exam, mucous membranes moist Neck exam: Present: normal inspection, full ROM. Absent: tenderness, meningismus, lymphadenopathy Respiratory exam: Present: normal lung sounds bilaterally. Absent: respiratory distress, wheezes, rales, rhonchi, stridor Cardiovascular Exam: Present: regular rate, normal rhythm, normal heart sounds. Absent: systolic murmur, diastolic murmur, rubs, gallop, clicks GI/Abdominal exam: Present: soft, tenderness (Right lower quadrant tenderness without guarding or rebound. No left lower quadrant tenderness or upper abdominal tenderness.), normal bowel sounds. Absent: distended, guarding, rebound, rigid External exam: Present: normal external exam. Absent: erythema, swelling, les ions, lacerations, ecchymosis Speculum exam: Present: normal speculum exam. Absent: erythema, vaginal discharge, cervical discharge, vaginal bleeding, foreign body, tissue, l aceration By manual exam: Present: adnexal tenderness (R adnexal tenderess). Absent: normal by manual exam, cervical motion tenderness, adnexal mass, uterine enlargement, uterine tenderness Back exam: Present: CVA tenderness (R). Absent: CVA tenderness (L) Neurological exam: Present: alert, oriented X3 Psychiatric exam: Present: normal affect, normal mood, anxious Course Vital Signs 12/28/18 12/28/18 06:13 07:29 Temperature 97.8 F Pulse Rate 91 77 Respiratory 20 18 Rate Blood Pressure 137/73 123/81 O2 Sat by Pulse 97 97 Oximetry Medical Decision Making - Medical Decision Making 43-year-old female with a past medical history of chronic lymphocytic leukemia, closed head injury, generalized anxiety presents for a chief complaint of right lower quadrant pain radiating to the right side of her back. This is been ongoing for 2 days. She has been nauseous and did have 3 bouts of watery diarrhea yesterday. Yesterday patient had a CT of the abdomen and pelvis with IV contrast that did not show any acute findings to account for patient's clinical symptoms. Appendix was not visualized but patient did not have any inflammatory changes around the cecum. Patient's pain improved and she was sent home. However today pain worsen again and she felt warm on the right side so he reevaluated. Exam does reveal right lower quadrant tenderness without guarding or rebound. Mild right CVA tenderness. Skin is normal appearance and temperature. Pelvic exam was performed which did reveal right adnexal tenderness without any cervical motion tenderness. White blood cell count today is 84.9, yesterday was 70.6. Patient has a history of CLL and was given IV steroids yest erday which may have caused an increase in leukocytosis. However she will follow up with primary care for repeat lab work. CMP unremarkable. Mild acidosis with a CO2 of 18, likely secondary to hyperventilation as patient is very anxious and her anxiety has been significant only increased over the past week. Urine does have 7 red blood cells which were assessed with patient. She'll follow up for this. However no evidence of hydronephrosis or kidney stone on yesterday's computed tomography scan. Transvaginal ultrasound was ordered which showed a 1.4 cm hypoechoic lesion in the right ovary that could represent a hemorrhagic follicle, with small amount of free fluid adjacent to the right ovary, likely ruptured cyst is the cause of patient's pain. There is also a structure similar present in the left ovary likely represents recently for ruptured follicle or couth this luteum.. There is also 1.7 x 1.8 cm of fluid centrally within the uterine cavity, given patient's history of prior lesion correlate for possible hematometra. Patient was given pain medication and Ativan for her anxiety. Currently think much better. At bedside resting smiling and laughing. No acute distress. Patient will be discharged home to follow up with her EMERGENCY VETERINARY ASSISTANT. States that she follows with Dr. garcia. She'll return here if she has any worsening symptoms. - Lab Data Result diagrams: 12/28/18 06:33 12/28/18 06:33 Lab Results 12/28/18 12/28/18 12/28/18 Range/Units 06:33 06:33 06:33 WBC (3.8-10.6) k/uL RBC (3.80-5.40) m/uL Hgb (11.4-16.0) gm/dL Hct (34.0-46.0) % MCV (80.0-100.0) fL MCH (25.0-35.0) pg MCHC (31.0-37.0) g/dL RDW (11.5-15.5) % Plt Count (150-450) k/uL Neutrophils % % Lymphocytes % % Monocytes % % Eosinophils % % Basophils % % Neutrophils # (1.3-7.7) k/uL Lymphocytes # (1.0-4.8) k/uL Monocytes # (0-1.0) k/uL Eosinophils # (0-0.7) k/uL Basophils # (0-0.2) k/uL Manual Slide Review Poikilocytosis (manual Anisocytosis Sodium 142 (137-145) mmol/L Potassium 3.8 (3.5-5.1) mmol/L Chloride 112 H (98-107) mmol/L Carbon Dioxide 18 L (22-30) mmol/L Anion Gap 12 mmol/L BUN 7 (7-17) mg/dL Creatinine 0.71 (0.52-1.04) mg/dL Est GFR (CKD-EPI)AfAm >90 (>60 ml/min/1.73 sqM) Est GFR (CKD-EPI)NonAf >90 (>60 ml/min/1.73 sqM) Glucose 97 (74-99) mg/dL Calcium 9.0 (8.4-10.2) mg/dL Total Bilirubin 0.6 (0.2-1.3) mg/dL AST 15 (14-36) U/L ALT 22 (9-52) U/L Alkaline Phosphatase 69 (38-126) U/L Total Protein 6.7 (6.3-8.2) g/dL Albumin 4.2 (3.5-5.0) g/dL Amylase 60 (30-110) U/L Lipase 76 (23-300) U/L Urine Color Yellow Urine Appearance Clear (Clear) Urine pH 6.0 (5.0-8.0) Ur Specific [place] 1.017 (1.001-1.035) Urine Protein Negative (Negative) Urine Glucose (UA) Negative (Negative) Urine Ketones 2+ H (Negative) Urine Blood Moderate H (Negative) Urine Nitrite Negative (Negative) Urine Bilirubin Negative (Negative) Urine Urobilinogen 2.0 (<2.0) mg/dL Ur Leukocyte Esterase Negative (Negative) Urine RBC 7 H (0-5) /hpf Urine WBC 1 (0-5) /hpf Ur Squamous Epith Cells 2 (0-4) /hpf Urine Bacteria Rare H (None) /hpf Urine Mucus Rare H (None) /hpf Urine HCG, Qual Not Detected (Not Detectd) 12/28/18 Range/Units 06:33 WBC 84.9 H* (3.8-10.6) k/uL RBC 5.24 (3.80-5.40) m/uL Hgb 13.9 (11.4-16.0) gm/dL Hct 43.0 (34.0-46.0) % MCV 82.1 (80.0-100.0) fL MCH 26.4 (25.0-35.0) pg MCHC 32.2 (31.0-37.0) g/dL RDW 16.4 H (11.5-15.5) % Plt Count 269 (150-450) k/uL Neutrophils % 22 % Lymphocytes % 69 % Monocytes % 2 % Eosinophils % 0 % Basophils % 3 % Neutrophils # 18.7 H (1.3-7.7) k/uL Lymphocytes # 58.9 H (1.0-4.8) k/uL Monocytes # 1.5 H (0-1.0) k/uL Eosinophils # 0.0 (0-0.7) k/uL Basophils # 2.1 H (0-0.2) k/uL Manual Slide Review Performed Poikilocytosis (manual Present Anisocytosis Slight Sodium (137-145) mmol/L Potassium (3.5-5.1) mmol/L Chloride (98-107) mmol/L Carbon Dioxide (22-30) mmol/L Anion Gap mmol/L BUN (7-17) mg/dL Creatinine (0.52-1.04) mg/dL Est GFR (CKD-EPI)AfAm (>60 ml/min/1.73 sqM) Est GFR (CKD-EPI)NonAf (>60 ml/min/1.73 sqM) Glucose (74-99) mg/dL Calcium (8.4-10.2) mg/dL Total Bilirubin (0.2-1.3) mg/dL AST (14-36) U/L ALT (9-52) U/L Alkaline Phosphatase (38-126) U/L Total Protein (6.3-8.2) g/dL Albumin (3.5-5.0) g/dL Amylase (30-110) U/L Lipase (23-300) U/L Urine Color Urine Appearance (Clear) Urine pH (5.0-8.0) Ur Specific [place] (1.001-1.035) Urine Protein (Negative) Urine Glucose (UA) (Negative) Urine Ketones (Negative) Urine Blood (Negative) Urine Nitrite (Negative) Urine Bilirubin (Negative) Urine Urobilinogen (<2.0) mg/dL Ur Leukocyte Esterase (Negative) Urine RBC (0-5) /hpf Urine WBC (0-5) /hpf Ur Squamous Epith Cells (0-4) /hpf Urine Bacteria (None) /hpf Urine Mucus (None) /hpf Urine HCG, Qual (Not Detectd) Disposition Clinical Impression: Abnormal collection of fluid in uterine cavity, Hemorrhagic cyst of right ovary Disposition: HOME SELF-CARE Condition: Good Instructions (If sedation given, give patient instructions): Ovarian Cyst (ED) Additional Instructions: Please follow up with primary care and EMERGENCY VETERINARY ASSISTANT in 1-2 days to review ultrasound results and repeat blood work. Take Motrin and Tylenol for pain. Return to the emergency department worsening symptoms. Is patient prescribed a controlled substance at d/c from ED?: No Referrals: Inna Barclay MD [Primary Care Provider] - 1-2 days Gisela Pham MD [STAFF PHYSICIAN] - 1-2 days Time of Disposition: 08:02
[2018-12-28 07:06] LABS: ALT 22 U/L (9-52); AST 15 U/L (14-36); African American GFR (CKD) >90 (>60 ml/min/1.73 sqM); Albumin 4.2 g/dL (3.5-5.0); Alkaline Phosphatase 69 U/L (38-126); Amylase 60 U/L (30-110); Anion Gap 12 mmol/L; Blood Urea Nitrogen 7 mg/dL (7-17); Carbon Dioxide 18 mmol/L (22-30); Chloride 112 mmol/L (98-107); Glucose 97 mg/dL (74-99); Potassium 3.8 mmol/L (3.5-5.1); Sodium 142 mmol/L (137-145); Total Bilirubin 0.6 mg/dL (0.2-1.3); Total Protein 6.7 g/dL (6.3-8.2)
[2018-12-28 07:36] LABS: Anisocytosis Slight; Basophils # (A) 2.1 k/uL (0-0.2); Basophils % (A) 3 %; Eosinophils % (A) 0 %; HGB 13.9 gm/dL (11.4-16.0); Lymphocytes # (A) 58.9 k/uL (1.0-4.8); Lymphocytes % (A) 69 %; MCH 26.4 pg (25.0-35.0); MCHC 32.2 g/dL (31.0-37.0); MCV 82.1 fL (80.0-100.0); Mean Platelet Volume 7.9; Monocytes # (A) 1.5 k/uL (0-1.0); Monocytes % (A) 2 %; Neutrophils # (A) 18.7 k/uL (1.3-7.7); Neutrophils % (A) 22 %; Platelet Count 269 k/uL (150-450); RBC 5.24 m/uL (3.80-5.40); RDW 16.4 % (11.5-15.5)
--- NOTE | 2018-12-28 07:47 | US ---
EXAMINATION TYPE: US transvaginal plus Dopplers DATE OF EXAM: 12/28/2018 COMPARISON: CT 12/27/2018 CLINICAL HISTORY: 43-year-old female RLQ pain TECHNIQUE: Transvaginal (TV). Color Doppler and spectral waveform analysis of the ovarian arteries and veins. Date of LMP: August 2018, history of ablation in July 2018 FINDINGS: EXAM MEASUREMENTS: Uterus: 7.1 x 3.3 x 6.1 cm cm Endometrial Stripe: 0.4 cm cm Right Ovary: 5.2 x 2.1 x 4.3 cm Left Ovary: 4.1 x 2.2 x 4.4 cm 1. Uterus: Retroverted but otherwise wnl 2. Endometrium: fluid centrally within the canal measures 1.8 x 0.7 x 1.7 cm 3. Right Ovary: Mildly enlarged due to a hypoechoic lesion measures 1.1 x 0.9 x 1.4 cm. 4. Left Ovary: 1.7 x 1.0 x 1.8 cm hypoechoic lesion with peripheral flow and somewhat crenulated june earance. Spectral, color and waveform doppler imaging shows good arterial and venous flow within the ovaries ; there is no evidence for ovarian torsion. 5. Bilateral Adnexa: small amount of free fluid adjacent to right ovary. 6. Posterior cul-de-sac: wnl IMPRESSION: 1. Retroverted uterus with 1.7 x 1.8 cm fluid centrally within the uterine cavity. Given the patient' s history of prior ablation, correlate for possible hematometra. 2. No sonographic evidence for ovarian torsion. 3. Crenulated 1.8 cm structure in the left ovary with peripheral flow likely recently ruptured follic le or corpus luteum. 4. An additional 1.4 cm hypoechoic lesion in the right ovary could represent a hemorrhagic follicle o r hemorrhagic corpus luteum. 5. Small amount of free fluid adjacent to the right ovary.
[2018-12-28 07:50] LABS: WBC 84.9 k/uL (3.8-10.6)
[2018-12-28] MEDS ORDERED: LORazepam 2 MG/ML INJ IV STA (07:54)
[2018-12-28 08:17] LABS: Poikilocytosis (M) Present
[2018-12-28] MEDS ORDERED: ACET/COD 300 MG/30 MG STARTER PACK 6 TAB BTL PO STA (08:44)
[2018-12-28 08:48] VITALS: BP 130/79; PULSE 82; RESP 16
[2018-12-30 14:05] LABS: N. gonorrhoeae,PCR Negative (Neg,Equiv); Neisseria Source Vagina
[2018-12-30 14:11] LABS: C. trachomatis,PCR Negative (Neg,Equiv); Chlamydia trachomatis Source Vagina
== END 2018-12-28 08:56 | disposition home or self-care (01) ==
LOC: EC 06:08
DX: N83.201 Unspecified ovarian cyst, right side (principal); N85.8 Other specified noninflammatory disorders of uterus; E87.2 Acidosis; R31.9 Hematuria, unspecified; F41.9 Anxiety disorder, unspecified; F32.9 Major depressive disorder, single episode, unspecified; Z88.6 Allergy status to analgesic agent; Z88.8 Allergy status to other drugs, medicaments and biological substances; Z91.041 Radiographic dye allergy status; Z79.890 Hormone replacement therapy; Z79.899 Other long term (current) drug therapy; Z85.6 Personal history of leukemia; Z90.49 Acquired absence of other specified parts of digestive tract
CPT/HCPCS: 36415; 80053; 82150; 83690; 85025; 81001; 81025; 87808; 87491; 87591; 87086; 93975; 76830; 99284; 96374; 96375 ×2; 96376; 96361; J2060; J2405; J1170

== ENCOUNTER → 2019-07-22 | Outpatient (CLI) | payer BC ==
[2019-07-22 07:40] LABS: Basophils # (A) 0.1 k/uL (0-0.2); Basophils % (A) 0 %; Eosinophils # (A) 0.1 k/uL (0-0.7); Eosinophils % (A) 0 %; HCT 42.8 % (34.0-46.0); HGB 13.9 gm/dL (11.4-16.0); Lymphocytes # (A) 24.7 k/uL (1.0-4.8); Lymphocytes % (A) 80 %; MCH 27.4 pg (25.0-35.0); MCHC 32.5 g/dL (31.0-37.0); MCV 84.3 fL (80.0-100.0); Mean Platelet Volume 8.6; Monocytes # (A) 0.5 k/uL (0-1.0); Monocytes % (A) 2 %; Neutrophils # (A) 4.7 k/uL (1.3-7.7); Neutrophils % (A) 15 %; Platelet Count 251 k/uL (150-450); RBC 5.07 m/uL (3.80-5.40); WBC 30.9 k/uL (3.8-10.6)
[2019-07-22 11:24] LABS: % Iron Saturation 24.69 (12.00-45.00); African American GFR (CKD) 90.8 (60.0-200.0); Albumin 4.2 g/dL (3.80-4.90); Albumin/Globulin Ratio 2.47 (1.60-3.17); Anion Gap 3.8 mmol/L (4.00-12.00); BUN/Creat Ratio 12.22 Ratio (12.00-20.00); Calcium 8.9 mg/dL (8.7-10.3); Carbon Dioxide 27.2 mmol/L (21.6-31.8); Globulin 1.7 g/dL (1.6-3.3); Non-African American GFR(CKD) 78.3 (60.0-200.0); Potassium 4.9 mmol/L (3.5-5.5); Total Bilirubin 0.4 mg/dL (0.2-1.2); Total Protein 5.9 g/dL (6.2-8.2)
[2019-07-22 11:31] LABS: Ferritin 35.8 ng/mL (10.0-291.0)
== END | disposition home or self-care (01) ==
LOC: LABWHC1 06:59
PROVIDERS: ATTEND Internal Medicine
DX: D50.0 Iron deficiency anemia secondary to blood loss (chronic) (principal); C91.10 Chronic lymphocytic leukemia of B-cell type not having achieved remission
CPT/HCPCS: 36415; 80053; 82728; 83540; 83550; 83615; 84466; 85025